=== PATIENT | male | born 1980 | race American Indian/Alaskan Native ===

== ENCOUNTER 2018-06-02 12:28 | Day surgery (SDC) | payer MEDICAID ==
[2018-05-14 13:29] VITALS: BMI 25.1
[2018-06-02] MEDS ORDERED: Lactated Ringer's 1,000 ML IV ONE (13:05)
--- NOTE | 2018-06-02 13:05 | CP.SDSHP ---
Same Day Surgery H & P - History Proposed Procedure: left foot fifth metatarsal head resection Pre-Op Diagnosis: left foot sub metatarsal 5 IPK lesion and painful callus - Allergies Allergies: Allergies No Known Allergies Allergy (Verified 05/14/18 12:30) - Date & Time Date: 06/02/18 Time: 13:05 Short Stay Discharge - Short Stay Discharge Admitting Diagnosis/Reason for Visit: M21.6X2 Disposition: HOME/ ROUTINE Additional Instructions (Diet, Activity): -Patient in good/stable condition for discharge home -Pt to resume medications per medical reconciliation -Resume regular diet -Please keep dressing clean, dry, & intact to surgical site -Use plastic bag over bandage for showering -Wear post op shoe at all times when ambulating -Call clinic if you see signs of infection (redness, swelling, malodor) -Please make an appointment to see Dr. Hernandez in office/clinic within 1 week for post-op check Progress Note/Discharge Note with Instructions: - Patient evaluated bedside in recovery s/p left foot surgery. - After surgical procedure patient in NAD - (+) Void, (+) Appetite - Capillary refill time <3s and NVS intact. - Patient denies complaints at this time. - Post operative instructions and plan of care explained to patient at length. - Patient. acknowledges verbal understanding. - Patient stable for DC per podiatric surgery
--- NOTE | 2018-06-02 13:09 | CP.PCM.PN ---
Subjective - Date & Time of Evaluation Date of Evaluation: 06/02/18 Time of Evaluation: 13:05 - Subjective Subjective: Podiatry progress note - Dr. Hernandez 38M seen and evaluated in [facility] preoperatively for left foot surgery. Seen resting comfortably with family member bedside. States he has been dealing with pain in his left foot for many years. States he has seen Dr. Hernandez for a left foot callus and lesion developed under the base of his fifth toe joint and the lesion was consistently debrided and filed down to make him comfortable and limit pain. States that the pain has been at its worst recently and limits his ability to bear weight on his left foot. States he has tried conservative treatments which have failed and he desires surgery today. Denies n/v/f/c/sob and has no other acute complaints. NPO status confirmed. PMHx: denies PSHx: denies All: NKDA Objective - Vital Signs/Intake and Output Vital Signs (last 24 hours): Temp Pulse Resp BP Pulse Ox 98.5 F 69 15 143/71 98 06/02/18 13:04 06/02/18 13:04 06/02/18 13:04 06/02/18 13:04 06/02/18 13:04 - Constitutional Appears: Non-toxic - Head Exam Head Exam: ATRAUMATIC - Extremities Exam Additional comments: LLE focused exam VASC: DP and PT pulses palpable; cap refill <3 seconds to all digits; no edema noted, temp gradient wnl DERM: IPK noted sub met 5 with extensive callus appreciated; no open lesions or wounds present; no bleeding or draining from site ORTHO: pain on palpation to sub met 5 callus and IPK lesion and gait altered due to guarding and pain associated with weightbearing NEURO: gross and protective sensation intact - Neurological Exam Neurological Exam: Alert, Awake, Oriented x3 - Psychiatric Exam Psychiatric exam: Normal Affect Assessment and Plan - Assessment and Plan (Free Text) Assessment: 38M with left sub met 5 IPK and painful callus Plan: Pt was seen and examined in [facility] Pt NPO status was confirmed All pre-op testing and clearance in chart Pt has exhausted all conservative treatment at this time and is opting for surgical intervention Pt was explained procedure and post-operative course All pt's questions were answered to satisfaction No guarantees were made Pt understands all risks, benefits and complications of procedure Pt will follow-up with Dr. Hernandez within 1 week of surgery
[2018-06-02] MEDS ORDERED: Bupivacaine 0.5% Inj(30mL) IJ ONE (13:13)
[2018-06-02] MEDS ORDERED: Lidocaine 1% Inj (20ml) IJ ONE (13:13)
[2018-06-02] MEDS ORDERED: ceFAZolin 1 GM in Sodium Chloride 0.9% 100 ML IVPB ONE (13:13)
[2018-06-02] MEDS ORDERED: Lidocaine 1% Inj (20ml) ONE (13:13)
[2018-06-02] MEDS ORDERED: Sodium Chloride 0.9% 1,000 ML IV SCH (13:15)
[2018-06-02] MEDS ORDERED: Propofol 10 mg/ml Inj (20 ML) ONE ×2 (14:04→14:17)
[2018-06-02] MEDS ORDERED: Midazolam 2 MG/2 ML VIAL ONE (14:05)
[2018-06-02] MEDS ORDERED: Lidocaine 1% 5ml Abboject ONE (14:11)
[2018-06-02] MEDS: Bupivacaine 0.5% Inj(30mL) ONE ×2 (14:25→14:58)
[2018-06-02] MEDS ORDERED: HYDROmorphone 0.5 mg/0.5 ml ISec IVP PRN (15:11)
[2018-06-02] MEDS ORDERED: Oxycodone/Acetaminophen 5/325 mg Tab PO PRN ×2 (15:11)
[2018-06-02] MEDS ORDERED: Lactated Ringer's 1,000 ML IV SCH (15:15)
[2018-06-02 15:41] VITALS: RESP 20
--- NOTE | 2018-06-02 16:31 | PCM.SURG1 ---
Surgeon's Initial Post Op Note - Surgeon's Notes Surgeon: Dr. Hernandez DPM Doughnut Maker: Dr. Nugent PGY1, Dr. Polanco PGY1 Type of Anesthesia: IV Sedation, Local Anesthesia Administered By: Jani Pre-Operative Diagnosis: Left foot painful callus sub metatarsal 5 Operative Findings: see dictation. I preop 20 cc 1:1 0.5% marcaine plain, 1% lidocaine plain, intraop 7 cc 0.5% marcaine plain. M 4-0 vicryl, 3-0 nylon Post-Operative Diagnosis: same Operation Performed: 1) left fifth metatarsal head resection 2) excision of plantar skin lesion sub metatarsal 5 Specimen/Specimens Removed: left fifth metatarsal head, left skin lesion Estimated Blood Loss: EBL {In ML}: 1 Blood Products Given: N/A Drains Used: No Drains Post-Op Condition: Good Date of Surgery/Procedure: 06/02/18 Time of Surgery/Procedure: 16:31
[2018-06-02 16:33] VITALS: BP 116/74; PULSE 51; TEMP 97.8; O2SAT 98
--- NOTE | 2018-06-02 16:46 | RAD ---
Date of service: 06/02/2018 PROCEDURE: Left Foot Radiographs. HISTORY: s/p left foot surgery COMPARISON: Preoperative study 05/14/2018. TECHNIQUE: 3 views obtained. FINDINGS: BONES: Status post resection of the distal left 5th metatarsal. JOINTS: Postoperative findings noted. SOFT TISSUES: Findings within the soft tissues a tests to recent surgery. OTHER FINDINGS: None. IMPRESSION: Satisfactory postoperative status.
--- NOTE | 2018-06-06 00:02 | OP ---
PROCEDURE DATE: 06/02/2018 SURGEON: Javier Hernandez DPM SENIOR STAFF SPECIALIZED EMPLOYMENT: Rigoberto Verdugo, PGY-1. HOSPICE MANAGER: Apollo Gunter MD ANESTHESIA: IV sedation with local. PREOPERATIVE DIAGNOSIS: Left foot nonhealing hyperkeratotic lesion, fifth submetatarsal head. POSTOPERATIVE DIAGNOSIS: Left foot nonhealing hyperkeratotic lesion, fifth submetatarsal head. NAME OF PROCEDURE: 1. Left foot fifth metatarsal head resection. 2. Excision of left foot skin lesion, submetatarsal five. INDICATIONS: The patient is a 38-year-old male with the above diagnoses. The patient has exhausted all conservative treatment at this time and now requires surgical intervention. The patient signed the consent after careful explanation of risks, benefits, complications, and alternatives for surgical procedure. No guarantees were given nor implied. N.p.o. status was confirmed prior to taking the patient to the OR. PREPARATION: The patient was brought into the operating room and placed on the operating room table in a supine position. A time-out was performed for identification of the correct patient and procedure. The patient received a total of 20 mL of 1:1 mixture of 1% lidocaine plain and 0.5% Marcaine plain in a reverse Abdi block fashion to the left lateral forefoot. Once anesthesia was achieved, the left foot was then prepped and draped in normal sterile manner and the procedure begun. DESCRIPTION OF PROCEDURE: Attention was directed to the patient's left foot in which using a #15, a linear incision was made just lateral to the fifth metatarsal head straight down to bone. Next, utilizing a [place] elevator, all periosteal tissue was carefully resected off the fifth metatarsal head. At this time, utilizing a sagittal saw, the fifth metatarsal head was resected. All devitalized tissue and bone were then passed from the operative site. The wound was then flushed with copious amounts of sterile normal saline. The subcutaneous tissue was then reapproximated with 4-0 Vicryl and the skin was reapproximated using 3-0 nylon in a horizontal mattress technique. At this time, 10 mL of 0.5% Marcaine were given in a local block type fashion to the left foot. Attention was then directed to the submetatarsal five on the left foot where a hyperkeratotic lesion with a nucleus was appreciated. The site was sharply divided with a 15 blade. Then using a 15 blade, the lesion was excised using an elliptical incision. The site was then copiously flushed with sterile saline and the edges were sutured using 3-0 nylon. The surgical sites were then dressed with Xeroform, Betadine-soaked 4x4 gauze, Mag, and Coban. POSTOPERATIVE CONDITION: The patient tolerated the anesthesia and procedure well, was escorted to the recovery room with vital signs stable and neurovascular status intact to the left foot. The patient will follow up with Dr. Hernandez in the wound care center in one week. RIGOBERTO VERDUGO Javier Hernandez DPM
== END 2018-06-02 17:25 | disposition home or self-care (01) ==
LOC: H.OPSURG 12:28
PROVIDERS: ATTEND Podiatrist
DX: M21.6X2 Other acquired deformities of left foot (principal)
CPT/HCPCS: 28104; 28173; 73630; 88304; 97161; G8978; G8979; G8980; J0690; J2250; J2704; J3010; J7120